=== PATIENT | female | born 1955 | race Caucasian/White ===

== ENCOUNTER → 2021-12-12 14:45 | Outpatient (CLI) | payer MEDICARE, OTHER, SELFPAY ==
--- NOTE | ~2021-12-12 | MR_ITS ---
EXAMINATION: MR shoulder RT wo con DATE: 12/12/2021 15:26 INDICATION: Right shoulder pain. Impingement syndrome. TECHNIQUE: Magnetic resonance imaging (MRI) of the right shoulder was performed without intravenous c ontrast. Sequences included axial PD-weighted FS FSE, coronal oblique PD-weighted FS FSE, coronal obl ique T2-weighted FS FSE, sagittal PD-weighted FS FSE, and sagittal T1-weighted SE. COMPARISON: None. FINDINGS: Coracoacromial arch: The acromion undersurface is curved in morphology (type II). The coracoacromial ligament is normal. M oderate acromioclavicular osteoarthritis with moderate joint space are at but without significant ost eophytosis. Rotator cuff: Mild supraspinatus, infraspinatus and subscapularis tendinopathy. Very small partial-thickness intras ubstance tear at the anterior aspect of the middle facet footplate of the infraspinatus tendon measur ing 3 mm AP and involving approximately one third to one half of the tendon thickness with small eros ion at the underlying footplate. The teres minor tendon is normal. Normal rotator cuff muscle bulk an d signal. Biceps tendon, glenoid labrum and glenohumeral cartilage: Long head of the biceps tendon is normal. There is a tear at the 5:30-3:30 position of the anteroinfe rior glenoid labrum with mild edema along the underlying anteroinferior rim of the glenoid. Chondroca lcinosis with partial thickness cartilage loss and chondral surface irregularity at the anterosuperio r margin of the glenoid. More diffuse mild partial-thickness cartilage loss with scattered chondral s urface regularity along the humeral head. Small marginal osteophytes along the anteroinferior aspect of the humeral head. Fluid: Minimal glenohumeral joint effusion with mild synovitis at the suprapatellar pouch. Proportional mini mal amount of fluid along the long head biceps tendon sheath. No loose osteochondral bodies. No abnor mal fluid signal in the subacromial/subdeltoid bursa to suggest bursitis. Bones: Marrow signal is normal. No fracture or pathologic marrow replacing process. IMPRESSION: 1. Mild supraspinatus, infraspinatus and subscapularis tendinopathy with very small partial-thickness intrasubstance tear at the lateral facet footplate of the anterior infraspinatus tendon. 2. Mild glenohumeral osteoarthritis with tear at the anteroinferior glenoid labrum. 3. Moderate acromioclavicular osteoarthritis. Reviewed, dictated and finalized at location B. IMPRESSION: 1. Mild supraspinatus, infraspinatus and subscapularis tendinopathy with very s mall partial-thickness intrasubstance tear at the lateral facet footplate of th e anterior infraspinatus tendon. 2. Mild glenohumeral osteoarthritis with tear at the anteroinferior glenoid lab rum. 3. Moderate acromioclavicular osteoarthritis.
== END ==
PROVIDERS: PCP Family Medicine; Visit Provider Physician Assistant
DX: M75.41 Impingement syndrome of right shoulder (principal); M25.511 Pain in right shoulder; M77.8 Other enthesopathies, not elsewhere classified; M19.011 Primary osteoarthritis, right shoulder; S43.431A Superior glenoid labrum lesion of right shoulder, initial encounter
CPT/HCPCS: 73221